=== PATIENT | male | born 1975 | race American Indian/Alaskan Native ===

== ENCOUNTER 2021-03-31 02:32 | Emergency (ER) | payer OTHER ==
[2021-03-31] MEDS ORDERED: SUCCINYLCHOLINE CHLORIDE 200 MG/10 ML INJ MDV ONE (02:36)
[2021-03-31] MEDS ORDERED: SODIUM CHLORIDE 0.9% 1000 ML 1,000 ML ONE ×3 (02:45→03:33)
[2021-03-31] MEDS ORDERED: MIDAZOLAM 5 MG/5 ML INJ MDV IV ONE (02:45)
[2021-03-31 03:15] LABS: Amorphous Crystals,Urine Few; Bilirubin,Urine NEG (Negative); Blood,Urine LG (Negative); Color,Urine Yellow (Yellow); Urobilinogen,Urine < 2.0 mg/dL (<2.0)
--- NOTE | 2021-03-31 03:16 | XRay Report ---
CHEST 1 VIEW 03/31/2021 2:10 AM INDICATION / CLINICAL INFORMATION: cardiac arrest. COMPARISON: None available. FINDINGS: SUPPORT DEVICES: ET tube is satisfactory in position. NG tube sidehole is in the mid esophagus and sh ould be advanced with tip in the distal esophagus currently. HEART / MEDIASTINUM: No significant abnormality. LUNGS / PLEURA: Mild increased perihilar interstitial prominence/vascularity No pneumothorax. Signer Name: Miles Harden MD Signed: 03/31/2021 3:12 AM Workstation Name: [id number]
[2021-03-31 03:17] LABS: RBC,Urine > 182.0 /HPF (0.0-6.0)
[2021-03-31 03:19] LABS: Amphetamine Screen,Urine PRESUMPTIVE NEGATIVE; Benzodiazepines Screen,Urine PRESUMPTIVE NEGATIVE; Cannabinoid Screen,Urine PRESUMPTIVE NEGATIVE; Cocaine Screen,Urine PRESUMPTIVE POSITIVE; Methadone Screen,Urine PRESUMPTIVE NEGATIVE; Opiate Screen,Urine PRESUMPTIVE NEGATIVE
[2021-03-31] MEDS ORDERED: EPINEPHrine 1 MG/10 ML SYRINGE ONE (03:45)
[2021-03-31] MEDS ORDERED: DEXTROSE 50% IN WATER (25GM) 50 ML SYRINGE IV ONE (03:45)
[2021-03-31] MEDS ORDERED: SODIUM BICARB 8.4% 50 MEQ/50 ML SYRINGE IV ONE ×2 (03:45→04:12)
[2021-03-31 03:46] LABS: Mean Corpuscular HGB Conc 28 % (32-34); Platelet Count 169 K/mm3 (140-440); Red Blood Count 3.81 M/mm3 (3.65-5.03); Red Cell Distribution Width 16.2 % (13.2-15.2)
[2021-03-31 03:50] LABS: Hematocrit 45.4 % (35.5-45.6); Hemoglobin 12.7 gm/dl (11.8-15.2); Mean Corpuscular Volume 119 fl (84-94)
[2021-03-31] MEDS ORDERED: SODIUM CHLORIDE 0.9% 1000 ML IV SOLN IV ONE (03:55)
[2021-03-31] MEDS ORDERED: VANCOMYCIN 1,750 MG in SODIUM CHLORIDE 0.9% 500 ML 500 ML IV ONE (03:56)
[2021-03-31] MEDS ORDERED: CEFEPIME/NS 2 GM/100 ML 2 GM/100 ML BAG IV ONE (03:56)
[2021-03-31 03:57] LABS: INR 4.21 (0.87-1.13)
[2021-03-31 04:03] LABS: Partial Thromboplastin Time 79.7 Sec. (24.2-36.6)
[2021-03-31 04:07] LABS: Albumin 3.9 g/dL (3.9-5); BUN/Creatinine Ratio 8; Bilirubin,Direct 0.5 mg/dL (0-0.2); Blood Urea Nitrogen 27 mg/dL (9-20); Calcium 9.5 mg/dL (8.4-10.2); Hemolysis Index 42
[2021-03-31] MEDS ORDERED: SODIUM CHLORIDE 0.9% 500 ML 500 ML ONE (04:14)
[2021-03-31 04:22] LABS: Band Neutrophils # (Manual) 2.2 K/mm3; Total Cells Counted 100
[2021-03-31 04:23] LABS: Anisocytosis 1+; Chol/HDL Ratio 3.87 %; HDL Cholesterol 41 mg/dL (40-59); LDL Cholesterol,Direct TNR mg/dL (50-130); Macrocytosis 2+; Platelet Estimate Consistent w Auto; Toxic Vacuolation 2+
[2021-03-31 04:33] LABS: Alanine Aminotransferase 11429 units/L (7-56)
[2021-03-31] MEDS ORDERED: NORepinephrine/NS 4 MG-250 ML 4 MG/250 ML BAG IV SCH (05:00)
[2021-03-31] MEDS ORDERED: SODIUM BICARBONATE 50 MEQ in SODIUM CHLORIDE 0.9% 1000 ML 1,000 ML IV ONE (05:12)
--- NOTE | 2021-03-31 05:17 | Emergency Department Report ---
<JUANA LEUNG - Last Filed: 03/31/21 08:01> ED CPR HPI - General Chief Complaint: Cardiac Arrest/CPR Stated Complaint: CARDIAC ARREST Time Seen by Provider: 03/31/21 02:56 - Related Data Allergies Allergy/AdvReac Type Severity Reaction Status Date / Time No Known Allergies Allergy Verified 03/31/21 03:42 ED Course - Reevaluation(s) Reevaluation #3: 03/31/21 07:42 I updated girlfriend at the bedside. I gave her the poor prognosis. Patient's heart rate 41 bpm. Systolic blood pressure 52 mm Hg. Due to wishes of brother, will continue vasopressor therapy with Levophed. Reevaluation #4: 03/31/21 08:01 Nurse called me to the room. Patient did not have a palpable pulse. PEA arrest. In consideration of comfort care and dire state, CPR not initiated. Patient was removed from ventilator. Several family members were at the bedside. Time of 0758 Reevaluation #5: 03/31/21 08:05 Cousin at the bedside informed me that this gentleman served in the for 25 years. He served in the [place] war. 03/31/21 08:05 2 family members or diagnosed with aortic dissection later in age. ED Medical Decision Making - Lab Data Result diagrams: 03/31/21 03:34 03/31/21 03:34 Critical care time in (mins) excluding proc time.: 120 Critical care attestation.: 120 minutes of critical care time excluding procedures were used in the care of the patient. Patient required multiple consultations. Multiple interventions. Multiple reassessments. Extensive discussions with family members. ED Disposition Clinical Impression: Cardiac arrest, Coagulopathy, Transaminitis, Acute renal failure, Non-ST elevation [place] (NSTEMI), Cocaine abuse, Aortic dissection, thoracoabdominal, MODS (multiple organ dysfunction syndrome) Disposition: DC-20 Is pt being admited?: No Does the pt Need Aspirin: No Condition: Stable Time of Disposition: 07:58 <FER JOHNSON - Last Filed: 04/17/21 07:37> ED CPR HPI - General Source: EMS Mode of arrival: Stretcher Limitations: Other - History of Present Illness Initial Comments: 45-year-old male presents to ED in cardiac arrest. Per patient's girlfriend, yesterday, patient had been complaining of "kidney pain" and has been experiencing nausea and vomiting. She states at 1 point patient went to the bathroom and began having some rectal bleeding. She told him that he had "popped a hemorrhoid." She states she then helped patient into the bathtub. She states patient then became unresponsive. EMS was called, upon EMS arrival patient had agonal respirations. He then went into V. fib. Patient was defibrillated x1. He was given epi x4 prior to ED arrival. EMS was unable to place any airway due to patient's teeth being completely clenched down. Upon ED arrival, patient has been in cardiac arrest for least 30 minutes with EMS. Patient presents to ED in continued arrest. In ED initial rhythm is asystole. MD Complaint: stopped breathing Place: home Bystander CPR Performed: No Initial Findings in the Field: unresponsive, agonal, VTACH/VFIB ROSC in the Field: No Associated Symptoms: other ("Kidney pain ") Treatments Prior to Arrival: chest compressions, defribrillated shocks # (1), epinephrine mgs # (4) ED Review of Systems ROS: Stated complaint: CARDIAC ARREST Other details as noted in HPI Comment: Unobtainable due to pts medical conditions ED Physical Exam - General Limitations: Other - Head Head exam: Present: atraumatic, normocephalic - Eye Eye exam: Present: other (Fixed and dilated bilaterally) - ENT ENT exam: Present: other (Teeth clenched down, unable to open mouth) - Neck Neck exam: Present: normal inspection - Respiratory Respiratory exam: Present: other (No spontaneous breaths) - Cardiovascular Cardiovascular Exam: Present: other (No palpable pulse) - GI/Abdominal GI/Abdominal exam: Absent: distended - Extremities Exam Extremities exam: Present: normal inspection - Neurological Exam Neurological exam: Present: other (GCS 3) - Skin Skin exam: Present: warm, dry, intact ED Course Vital Signs 03/31/21 03/31/21 03/31/21 03:00 03:16 03:27 Temperature Pulse Rate 86 73 77 Respiratory 0 L Rate Blood Pressure 118/65 131/114 77/41 O2 Sat by Pulse 97 96 100 Oximetry 03/31/21 03/31/21 03/31/21 03:30 03:45 03:46 Temperature 92.5 F L Pulse Rate 76 77 Respiratory 26 H Rate Blood Pressure 67/38 81/38 O2 Sat by Pulse 100 100 Oximetry 03/31/21 03/31/21 03/31/21 04:00 04:15 04:30 Temperature Pulse Rate 75 74 78 Respiratory 26 H 26 H 26 H Rate Blood Pressure 89/45 87/42 111/50 O2 Sat by Pulse 99 99 99 Oximetry 03/31/21 03/31/21 03/31/21 04:56 05:00 05:38 Temperature Pulse Rate 74 67 72 Respiratory 26 H 26 H Rate Blood Pressure 101/54 111/50 86/60 O2 Sat by Pulse 96 99 100 Oximetry 03/31/21 03/31/21 03/31/21 05:46 06:00 06:16 Temperature Pulse Rate 73 71 70 Respiratory 26 H 26 H 26 H Rate Blood Pressure 96/50 82/49 78/39 O2 Sat by Pulse 100 99 96 Oximetry 03/31/21 06:30 Temperature Pulse Rate 69 Respiratory 26 H Rate Blood Pressure 86/37 O2 Sat by Pulse 96 Oximetry - Reevaluation(s) Reevaluation #1: 03/31/21 03:00 After approximately 10 minutes of ACLS here in the ED we did achieve ROSC, however, patient's teeth were still clenched down. Patient was given succinylcholine 200 mg, but remained clenched down. I attempted nasal intubation, but was unsuccessful. He was then given Versed 5 mg. Afterward, I was then able to intubate using the glide scope. Reevaluation #2: 03/31/21 06:37 I spoke with the patient's brother Juan Bull ([phone]) over the phone. I explained to him patient's diagnosis, lab findings, neuro findings, and his poor prognosis. Brother states his mother actually had an aortic tear that was repaired. I conveyed to Mr. Martinez that the patient's dissection is much more extensive, and also explained to him my conversation with the CT surgeon at [facility]. He understands that patient's condition is beyond surgical repair. He is going to speak with the rest of the family and is planning on flying to [place] today from [place]. - Consultations Consultation #1: 03/31/21 06:18 [facility] transfer line contacted for CT surgery. Awaiting call back. 06/22/21 06:[address] Garner, CT surgeon at [facility]. Due to combination of multiple lab abnormalities, prolonged cardiac arrest of greater than 30 minutes, and lack of any neuro findings on exam, patient has extremely poor prognosis with likely 100% mortality. No surgical intervention will be performed. - Intubation Time Out Performed: No Paralytic: Succinylcholine Mg Given: 200 Laryngoscope: fiberoptic video scope Size: 4 ET Tube Size: 8 Tube Secured Depth (cm): 24 Tube Secured Location: teeth Tube Placement Confirmation: visualized tube passing t, equal breath sounds bilat, no breath sounds over epi, confirmation by capnometr Intubation Complications: other (Teeth clenched) ED Medical Decision Making - Lab Data Result diagrams: 03/31/21 03:34 03/31/21 03:34 - EKG Data -: EKG Interpreted by Tn EKG shows normal: sinus rhythm, intervals, QRS complexes Rate: normal - EKG Data Interpretation: other (Right axis deviation, ST depressions in lateral leads) - Radiology Data Radiology results: report reviewed, image reviewed - Medical Decision Making 45-year-old male presented to ED in cardiac arrest. EMS worked on patient for approximately 30 minutes prior to arrival. Patient received ACLS from us for another approximately 10 minutes here in the ED. GCS is 3, pupils are fixed and dilated bilaterally. Patient has not required any sedation. Labs are overwhelmingly abnormal. Patient is showing signs of coagulopathy. He appears to have shock liver with liver enzymes in the 10,000. He is in acute renal failure. He has a pH of 6.65. CT scan shows aortic dissection extending from the aortic arch into the abdomen pelvis and down to the bilateral iliac vessels. I spoke with [facility] CT surgeon, who states that this patient has likely 100% mortality. No surgical intervention would be done secondary to lab findings, prolonged cardiac arrest, and neuro exam. Patient is currently maxed out on Levophed with a systolic BP in the 80s. I spoke to patient's brother and explained patient's poor prognosis. No benefit in escalation of care. He will be admitted to the hospitalist - Differential Diagnosis CVA, GI bleed, aortic dissection Critical Care Time: Yes Critical care time in (mins) excluding proc time.: 70 Critical care attestation.: If time is entered above; I have spent that time in minutes in the direct care of this critically ill patient, excluding procedure time. Critical Care Time: 70 min
--- NOTE | 2021-03-31 05:44 | Cat Scan Report ---
. CT HEAD WITHOUT CONTRAST INDICATION / CLINICAL INFORMATION: Cardiac Arrest. TECHNIQUE: All CT scans at this location are performed using CT dose reduction for ALARA by means of automated e xposure control. COMPARISON: None available. FINDINGS: No acute intracranial hemorrhage. Ventricles appear normal in size without midline shift or mass effe ct. Small fluid levels in the maxillary sinuses with fluid levels in the sphenoid sinuses as well. Et hmoid sinus disease. Sella and pituitary appear normal. ADDITIONAL FINDINGS: None. IMPRESSION: 1. Fluid levels within the maxillary and sphenoid sinuses. Ethmoid sinus disease. 2. No acute intracranial hemorrhage. Signer Name: Miles Harden MD Signed: 03/31/2021 5:39 AM Workstation Name: [id number]
--- NOTE | 2021-03-31 06:02 | Cat Scan Report ---
CTA CHEST, ABDOMEN, AND PELVIS WITHOUT AND WITH CONTRAST INDICATION / CLINICAL INFORMATION: Cardiac Arrest, question possible dissection.. TECHNIQUE: Axial CT images were obtained through the chest, abdomen, and pelvis before and after injection of IV contrast. 3 plane MIP and/or 3D reconstructions were produced. All CT scans at this location are per formed using CT dose reduction for ALARA by means of automated exposure control. COMPARISON: None available. FINDINGS: There is an aortic dissection involving the aortic arch and extending inferiorly into the iliac vesse ls bilaterally. In the thoracic aorta dissection is a vertical orientation and then extends in a hori zontal pattern within the abdominal aorta. Bilateral pulmonary opacities and atelectasis in the dependent portions of the lungs. ET tube is sati sfactory in position. Pulmonary arteries appear patent. Liver, spleen appear normal. There are dilated small bowel loops throughout the abdomen. Pancreas nya ears normal. Kidneys are unremarkable. Distention of the colon with fluid throughout as well. No pallavi nant adenopathy is seen. IMPRESSION: 1. Aortic dissection extending from the aortic arch into the abdomen and pelvis and into the proximal iliac vessels bilaterally. 2. Bilateral pulmonary opacities/atelectasis 3. Marked dilatation of the small bowel loops throughout. There is also fluid in the system: Lesions throughout. Clinical correlation follow-up. CRITICAL RESULT: Time of Discovery (GEOMAGNETICIAN/CDT): 0457 Time of Communication (GEOMAGNETICIAN/CDT): 045 Licensed Practitioner Receiving Report: Yareli Read-Back Performed: Yes. Signer Name: Miles Harden MD Signed: 03/31/2021 5:58 AM Workstation Name: [id number]
--- NOTE | 2021-03-31 06:02 | Cat Scan Report ---
CTA CHEST, ABDOMEN, AND PELVIS WITHOUT AND WITH CONTRAST INDICATION / CLINICAL INFORMATION: Cardiac Arrest, question possible dissection.. TECHNIQUE: Axial CT images were obtained through the chest, abdomen, and pelvis before and after injection of IV contrast. 3 plane MIP and/or 3D reconstructions were produced. All CT scans at this location are per formed using CT dose reduction for ALARA by means of automated exposure control. COMPARISON: None available. FINDINGS: There is an aortic dissection involving the aortic arch and extending inferiorly into the iliac vesse ls bilaterally. In the thoracic aorta dissection is a vertical orientation and then extends in a hori zontal pattern within the abdominal aorta. Bilateral pulmonary opacities and atelectasis in the dependent portions of the lungs. ET tube is sati sfactory in position. Pulmonary arteries appear patent. Liver, spleen appear normal. There are dilated small bowel loops throughout the abdomen. Pancreas nya ears normal. Kidneys are unremarkable. Distention of the colon with fluid throughout as well. No pallavi nant adenopathy is seen. IMPRESSION: 1. Aortic dissection extending from the aortic arch into the abdomen and pelvis and into the proximal iliac vessels bilaterally. 2. Bilateral pulmonary opacities/atelectasis 3. Marked dilatation of the small bowel loops throughout. There is also fluid in the system: Lesions throughout. Clinical correlation follow-up. CRITICAL RESULT: Time of Discovery (DEPUTY JUVENILE OFFICER/CDT): 0457 Time of Communication (DEPUTY JUVENILE OFFICER/CDT): 045 Licensed Practitioner Receiving Report: Yareli Read-Back Performed: Yes. Signer Name: Miles Harden MD Signed: 03/31/2021 5:58 AM Workstation Name: [id number]
[2021-03-31 07:11] VITALS: BP 86/37
--- NOTE | 2021-04-01 19:19 | Electrocardiograph Report ---
[facility] Test Date: 2021-03-31 Test Time: 03:42:31 Pat Name: DIAMOND ROUSSEAU Department: Room: Gender: M [employer]istics Team Lead: EDWIN : 1975 Requested By: FER JOHNSON Order Number: [id number] Reading MD: Veronika Tapia Measurements Intervals [place] Rate: 76 P: 132 NE: 161 QRS: 113 QRSD: 99 T: -72 QT: 427 QTc: 481 Interpretive Statements Sinus rhythm Right axis deviation ST depression suggest acute lateral ischemia No previous ECG available for comparison Electronically Signed On 04-01-2021 19:19:14 EDT by Veronika Tapia
== END 2021-03-31 12:49 ==
LOC: ED 02:32
DX: I46.9 Cardiac arrest, cause unspecified (principal); D68.9 Coagulation defect, unspecified; M26.50 Dentofacial functional abnormalities, unspecified; N17.9 Acute kidney failure, unspecified; I21.3 ST elevation (STEMI) myocardial infarction of unspecified site; I71.01 Dissection of thoracic aorta; I71.02 Dissection of abdominal aorta; Z79.899 Other long term (current) drug therapy
CPT/HCPCS: 31500; 36415; 70450; 71045; 71275; 74174; 80048; 80061; 80076; 80307; 81001; 82140; 82805; 82962; 83690; 84484; 85007; 85025; 85610; 85730; 86850; 86900; 86901; 87040; 87086; 92950; 93005; 96365; 96367; 96375; 99291; 99292; J0171; J0330; J0692; J2250; J3370; J7030; J7040; Q9967; 94002; 96368